=== PATIENT | female | born 1985 | race Caucasian/White ===

== ENCOUNTER 2016-10-05 13:17 | Emergency (ER) | payer SELFPAY ==
[2016-10-05 13:34] VITALS: BP 128/75; PULSE 122; RESP 32; TEMP 99; O2SAT 97
[2016-10-05] MEDS ORDERED: ONDANSETRON DISINTEGRATING 4 MG TAB PO ONE (13:35)
[2016-10-05] MEDS ORDERED: ONDANSETRON DISINTEGRATING 4 MG TAB ONE (13:38)
[2016-10-05] MEDS ORDERED: levETIRAcetam 500 MG TAB ONE (13:54)
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
== END 2016-10-05 13:50 | disposition left against medical advice (07) ==
LOC: CED 13:17
DX: Z53.21 Procedure and treatment not carried out due to patient leaving prior to being seen by health care provider (principal)